=== PATIENT | male | born 1960 | race Caucasian/White ===

== ENCOUNTER 2016-08-25 16:52 | Emergency (ER) | payer BC ==
[2016-08-25] MEDS ORDERED: NS 0.9% 1000 ML* 1,000 ML IV ONE (19:31)
[2016-08-25 20:43] LABS: Hematocrit 43 % (42-52); Hemoglobin 15.2 g/dl (14.0-18.0); Mean Corpuscular HGB Conc 36 g/dl (31-36); Mean Corpuscular Hemoglobin 31 pg (27-31); Mean Corpuscular Volume 87 fL (80-94); Mean Platelet Volume 9 um3 (7.4-10.4); Red Blood Count 4.91 10^6/ul (4.0-5.4); Red Cell Distribution Width 14 % (10.5-15); White Blood Count 9.1 10^3/ul (3.5-10.8)
[2016-08-25 21:05] LABS: Albumin 4.3 g/dL (3.2-5.2); BUN/Creatinine Ratio 17.5 (8-20); C Reactive Protein 25.51 mg/L (< 5.00); Calcium 9.4 mg/dL (8.6-10.3); EGFR African American 129.6 (>60); EGFR Non-African American 100.7 (>60); Globulin 3.6 g/dL (2-4); Potassium 4.1 mmol/L (3.5-5.0); Total Bilirubin 0.5 mg/dL (0.2-1.0); Total Protein 7.9 g/dL (6.4-8.9)
[2016-08-25] MEDS ORDERED: Iohexol 300* (CONTRAST) 10 ML SDV IV ONE (21:10)
--- NOTE | 2016-08-25 21:52 | RAD ---
Indication: Chest mass abscess, impacted tooth on the left. CT of the facial bones was obtained after intravenous injection of 50 mL of Omnipaque 300. Coronal and sagittal reconstructed images were obtained. The third molars bilaterally in the maxilla appear to be impacted. The right impacted third molar appears to extend into the maxillary sinus. The left third molar in the left maxilla is also impacted. A large cystic lesion is noted in the maxilla extending into the maxillary sinus. This measures approximately 3.8 x 2.5 x 2.9 cm. Although this may represent an abscess possibility of an odontogenic keratocyst or ameloblastoma should BE considered. Periapical abscesses are noted in the incisors of the central and upper incisors. Multiple dental caries are noted. Multiple dental caries with multiple areas of missing teeth are noted in the mandible. The parotid glands are otherwise unremarkable. The remainder of the salivary glands are unremarkable. Inferior thyroid lobes are unremarkable. Scattered lymph nodes are noted especially level 2 lymph nodes bilaterally measuring up to 10 mm. Lung apices are otherwise unremarkable. IMPRESSION: THERE IS A CYSTIC LESION IN THE LEFT MAXILLA EXTENDING INTO THE LEFT MAXILLARY SINUS WHICH APPEARS TO BE ODONTOGENIC IN ORIGIN MEASURING 3.8 X 2.5 X 2.9 CM. ALTHOUGH THIS MAY REPRESENT AN ABSCESS THE POSSIBILITY OF A ODONTOGENIC KERATOCYST OR AMELOBLASTOMA SHOULD BE CONSIDERED. MULTIPLE DENTAL CARIES AND PERIAPICAL ABSCESSES ARE NOTED IN THE MAXILLA.
[2016-08-26] MEDS ORDERED: Clindamycin 900 MG/D5W BAG(*) 50 ML IVPB ONE (00:03)
[2016-08-26] MEDS ORDERED: metroNIDAZOLE IV 500 MG/100ML* 500 MG/100 ML BAG IVPB ONE (00:04)
--- NOTE | 2016-08-26 01:28 | ED ---
Throat Pain/Nasal Congestion - HPI Summary HPI Summary: Patient arrives to ED with CC of not being able to open mouth which has steadily gotten worse over the past few days. He was seen by a dentist last week and dx with dental abscess and impacted tooth on the lower back molar. He was placed on clindamycin and has been on it for a total of 6 days at 4x per day. He states now worsening trismus, pain extending downward into the neck and jaw pain on the left side. At rest, he denies pain. Pain is only present upon attempting to open his mouth. He states the swelling originally present on the left lower jaw has decreased, but pain and trismus remain. Denies fever. Difficulty eating d/t limitation on opening mouth. Drinking OK. - History of Current Complaint Chief Complaint: EDDentalPain Time Seen by Provider: 08/25/16 19:28 Hx Obtained From: Patient Onset/Duration: Gradual Onset Severity: Moderate - Epiglottits Risk Factors Epiglottis Risk Factors: Negative - Allergies/Home Medications Allergies/Adverse Reactions: Allergies Allergy/AdvReac Type Severity Reaction Status Date / Time Aspirin Allergy Bleeding Verified 08/25/16 20:46 PMH/Surg Hx/FS Hx/Imm Hx Previously Healthy: Yes - Immunization History Hx Pertussis Vaccination: No Immunizations Up to Date: Unable to Obtain/Confirm Infectious Disease History: No Infectious Disease History: Denies: Traveled Outside the [place] in Last 30 Days - Social History Occupation: Employed Full-time Lives: With Family Alcohol Use: Rare Hx Substance Use: No Substance Use Type: Reports: None Smoking Status (MU): Never Smoked Tobacco Do You Chew or Dip Tobacco: No Have You Chewed or Dipped Tobacco in the LAST YEAR: No Have You Smoked in the Last Year: No Review of Systems Constitutional: Negative Positive: Dental Pain - left lower jaw pain with slight swelling and trismus Cardiovascular: Negative Respiratory: Negative Musculoskeletal: Negative Skin: Negative Neurological: Negative Psychological: Normal All Other Systems Reviewed And Are Negative: Yes Physical Exam Triage Information Reviewed: Yes Vital Signs On Initial Exam: Initial Vitals Temp Pulse Resp BP Pulse Ox 97.6 F 80 18 183/86 100 08/25/16 17:07 08/25/16 17:07 08/25/16 17:07 08/25/16 17:07 08/25/16 17:07 Vital Signs Reviewed: Yes Appearance: Positive: Well-Appearing, No Pain Distress, Well-Nourished Skin: Positive: Warm, Skin Color Reflects Adequate Perfusion Head/Face: Positive: Normal Head/Face Inspection, TMJ Tenderness - over left side, maxillary sinus pressure and pain Eyes: Positive: EOMI, XENIA ENT: Positive: Dental tenderness - left lower jaw Dental: Positive: Percussion Tenderness @ - left jaw and maxillary sinus pressure, Abscess @ - left lower molar, Cervical Lymphadenopathy - left cervical LN Neck: Positive: Supple Respiratory/Lung Sounds: Positive: Breath Sounds Present, Decreased Breath Sounds Cardiovascular: Positive: Normal Musculoskeletal: Positive: Normal, Strength/ROM Intact Neurological: Positive: Normal, Sensory/Motor Intact, Alert, Oriented to Person Place, Time, Other - speech abnormal d/t trismus Psychiatric: Positive: Affect/Mood Appropriate AVPU Assessment: Alert Diagnostics - Vital Signs Vital Signs Temp Pulse Resp BP Pulse Ox 08/25/16 20:44 98.9 F 88 16 183/86 98 08/25/16 17:07 97.6 F 80 18 183/86 100 - Laboratory Lab Results: Lab Results 08/25/16 08/25/16 08/25/16 Range/Units 20:35 20:35 20:35 WBC 9.1 (3.5-10.8) 10^3/ul RBC 4.91 (4.0-5.4) 10^6/ul Hgb 15.2 (14.0-18.0) g/dl Hct 43 (42-52) % MCV 87 (80-94) fL MCH 31 (27-31) pg MCHC 36 (31-36) g/dl RDW 14 (10.5-15) % Plt Count 291 (150-450) 10^3/ul MPV 9 (7.4-10.4) um3 Neut % (Auto) 62.5 (38-83) % Lymph % (Auto) 21.8 L (25-47) % Morrison % (Auto) 13.0 H (1-9) % Eos % (Auto) 1.9 (0-6) % Baso % (Auto) 0.8 (0-2) % Absolute Neuts (auto) 5.7 (1.5-7.7) 10^3/ul Absolute Lymphs (auto) 2.0 (1.0-4.8) 10^3/ul Absolute Monos (auto) 1.2 H (0-0.8) 10^3/ul Absolute Eos (auto) 0.2 (0-0.6) 10^3/ul Absolute Basos (auto) 0.1 (0-0.2) 10^3/ul Absolute Nucleated RBC 0 10^3/ul Nucleated RBC % 0.1 Sodium 137 (133-145) mmol/L Potassium 4.1 (3.5-5.0) mmol/L Chloride 105 (101-111) mmol/L Carbon Dioxide 27 (22-32) mmol/L Anion Gap 5 (2-11) mmol/L BUN 14 (6-24) mg/dL Creatinine 0.80 (0.67-1.17) mg/dL Est GFR ( Amer) 129.6 (>60) Est GFR (Non-Af Amer) 100.7 (>60) BUN/Creatinine Ratio 17.5 (8-20) Glucose 86 (70-100) mg/dL Lactic Acid 0.7 (0.5-2.0) mmol/L Calcium 9.4 (8.6-10.3) mg/dL Total Bilirubin 0.50 (0.2-1.0) mg/dL AST 16 (13-39) U/L ALT 14 (7-52) U/L Alkaline Phosphatase 104 (34-104) U/L C-Reactive Protein 25.51 H (< 5.00) mg/L Total Protein 7.9 (6.4-8.9) g/dL Albumin 4.3 (3.2-5.2) g/dL Globulin 3.6 (2-4) g/dL Albumin/Globulin Ratio 1.2 (1-3) Result Diagrams: 08/25/16 20:35 08/25/16 20:35 Lab Statement: Any lab studies that have been ordered have been reviewed, and results considered in the medical decision making process. EENT Course/Dx - Course Course Of Treatment: Patient evaluated. D/t trismus, swelling and known abscess , CT of soft tissue neck ordered. Abscess likely extending superior into the maxillary sinus, although patient experiencing pain in jaw and neck. Dr Ravi consulted throughout assessment. Dr Max consulted at 11:30p. Stated will see in office next week. Place on Metronidazole and continue with clindamycin. Call dentist for follow up. Close return precuations regarding fever, worsening trismus, airway compromise or difficulty breathing. Patient given clindaymycin IV and metronidazole IV and discharged home with PO abx. Patient agreeable to plan. - Differential Diagnoses Differential Diagnoses: Dental Abscess, Dental Caries, Fractured Tooth - Diagnoses Provider Diagnoses: Trismus - Provider Notifications Instructed by Provider To: Have Pt Call For Appt. - Dr. Max Discharge - Discharge Plan Condition: Stable Disposition: HOME Prescriptions: Clindamycin Cap(NF) [Cleocin 300 mg Cap(NF)] 300 mg PO Q6H #20 cap Metronidazole [Flagyl 500 MG TAB] 500 mg PO TID #21 tab Patient Education Materials: Dental Abscess (ED) Referrals: No Primary Care Phys,NOPCP [Primary Care Provider] - Geovani Max MD [Doctor of Dental Medicine] - Additional Instructions: Follow up with Dr. Max next week. Call office tomorrow morning. I have placed you on Flagyl (Metronidzole) on the direction of Dr. Max. Due to the unknown date of your last day of Clindaymycin, I will prescribe you 5 days worth which will last until you see Dr. Max. Call your dentist tomorrow for an appt. They may want to see you after you see the oral surgeon. If symptoms worsen, you develop a fever, sweats or chills, come back to ED or see your PCP right away.
[2016-08-26 01:41] VITALS: BP 147/96
== END 2016-08-26 01:39 | disposition home or self-care (01) ==
LOC: ED 16:52
DX: R25.2 Cramp and spasm (principal); K08.89 Other specified disorders of teeth and supporting structures
CPT/HCPCS: 36415; 70491; 80053; 83605; 85025; 86140; 96365; 99283; J3490; Q9967

== ENCOUNTER 2017-12-09 20:14 | Emergency (ER) | payer BC ==
[2017-12-09 20:33] VITALS: BP 132/95
[2017-12-09] MEDS ORDERED: Clindamycin CAP* 150 MG PO ONE (21:48)
--- NOTE | 2017-12-09 22:00 | ED ---
Throat Pain/Nasal Congestion - HPI Summary HPI Summary: 57-year-old female presents with left-sided facial swelling for the past couple days. He states he saw his dentist on and was started on amoxicillin. No dental work or drainage was done by the dentist. He states that swelling today has increased somewhat and he was [facility] and was started on doxycycline. He states that he takes ibuprofen and says pain has decreased. He states tenderness and swelling underneath the eye. He states he was warned about this and should come to the ED. States that he took 1 dose of the doxycycline today. No fever. No chest pain shortness breath. No difficulty swallowing. No pain with eye movement. Has history of dental infections. - History of Current Complaint Chief Complaint: EDDentalPain Time Seen by Provider: 12/09/17 21:18 - Allergies/Home Medications Allergies/Adverse Reactions: Allergies Allergy/AdvReac Type Severity Reaction Status Date / Time aspirin Allergy Hives Verified 12/09/17 20:30 PMH/Surg Hx/FS Hx/Imm Hx Endocrine/Hematology History: Denies: Hx Diabetes Sensory History: Denies: Hx Glaucoma Infectious Disease History: No Infectious Disease History: Denies: Traveled Outside the [place] in Last 30 Days - Family History Known Family History: Positive: Hypertension - Social History Alcohol Use: Rare Hx Substance Use: No Substance Use Type: Reports: None Smoking Status (MU): Never Smoked Tobacco Have You Smoked in the Last Year: No Review of Systems Negative: Fever Positive: Dental Pain Negative: Chest Pain Negative: Shortness Of Breath All Other Systems Reviewed And Are Negative: Yes Physical Exam Triage Information Reviewed: Yes Vital Signs On Initial Exam: Initial Vitals Temp Pulse Resp BP Pulse Ox 97.7 F 80 20 132/95 97 12/09/17 20:28 12/09/17 20:28 12/09/17 20:28 12/09/17 20:28 12/09/17 20:28 Vital Signs Reviewed: Yes Appearance: Positive: Well-Appearing Skin: Positive: Warm, Dry Head/Face: Positive: Normal Head/Face Inspection Eyes: Positive: Normal, EOMI, XENIA, Conjunctiva Clear, Other: - No edema above the left eye ENT: Positive: Normal ENT inspection, Pharynx normal, TMs normal Dental: Positive: Gross Decay/Caries @ - Throughout, Dental Fracture @ - 11, Abscess @ - edema above 11 tooth with no palpable abscess Neck: Positive: Supple, Nontender, No Lymphadenopathy Respiratory/Lung Sounds: Positive: Clear to Auscultation, Breath Sounds Present Cardiovascular: Positive: Normal, RRR Musculoskeletal: Positive: Normal Neurological: Positive: Normal Psychiatric: Positive: Normal Diagnostics - Vital Signs Vital Signs Temp Pulse Resp BP Pulse Ox 12/09/17 20:28 97.7 F 80 20 132/95 97 - Laboratory Lab Statement: Any lab studies that have been ordered have been reviewed, and results considered in the medical decision making process. EENT Course/Dx - Course Course Of Treatment: 57-year-old female presents with left-sided facial swelling for the past couple days. He states he saw his dentist on and was started on amoxicillin. No dental work or drainage was done by the dentist. He states that swelling today has increased somewhat and he was [facility] and was started on doxycycline. He states that he takes ibuprofen and says pain has decreased. He states tenderness and swelling underneath the eye. He states he was warned about this and should come to the ED. States that he took 1 dose of the doxycycline today. No fever. No chest pain shortness breath. No difficulty swallowing. No pain with eye movement. Has history of dental infections. On exam has edema noted to left-sided face. No periorbital cellulitis noted. Has tenderness to broke tooth number 11 with edema of bone in the gum. No abscess felt. Will Switch prescription clindamycin to better cover for the dental infection. Told to follow up with dentist. Patient understands and agrees with plan. - Differential Diagnoses Differential Diagnoses: Dental Abscess, Dental Caries, Fractured Tooth - Diagnoses Provider Diagnoses: Dental abscess Discharge - Sign-Out/Discharge Documenting (check all that apply): Discharge/Admit/Transfer - Discharge Plan Condition: Good Disposition: HOME Prescriptions: Clindamycin Cap(NF) [Clindamycin Cap 300 mg Cap(NF)] 300 mg PO TID #20 cap Patient Education Materials: Dental Abscess (ED) Referrals: Morgan Hendrix MD [Primary Care Provider] - Additional Instructions: Take clindamycin three times a day for 7 days Take ibuprofen every 6 hours for pain as needed Avoid hard, crunchy food until seen by dentist Return to ED if develop fever, shortness of breath, pain with eye movement - Billing Disposition and Condition Condition: GOOD Disposition: Home Images - Images Dental: 1 - edema of gum
== END 2017-12-09 22:19 | disposition home or self-care (01) ==
LOC: ED 20:14
DX: K04.7 Periapical abscess without sinus (principal); Z88.6 Allergy status to analgesic agent
CPT/HCPCS: 99282; A9270-GY